=== PATIENT | female | born 1990 | race African-American/Black ===

== ENCOUNTER 2019-02-08 18:25 | Emergency (ER) | payer MEDICAID ==
[~2019-02-08 18:25] MED LIST: DILANTIN; FERROUS SULFATE; [UNRECOGNIZED DRUG - OTHER]
[2019-02-08] MEDS ORDERED: SODIUM CHLORIDE 0.9% 1,000 ML IV SCH (18:54)
[2019-02-08] MEDS ORDERED: DIPHENHYDRAMINE 50MG/ML VIAL IV ONE (19:00)
[2019-02-08] MEDS ORDERED: METHYLPREDNISOLONE SOD SUCC 125 MG/2 ML VIAL IV ONE (19:00)
[2019-02-08] MEDS ORDERED: FAMOTIDINE 20MG/2ML VIAL IV ONE (19:00)
[2019-02-08 20:03] LABS: BASOPHILS % 0.4 % (0.0-2.0); EOSINOPHILS % 0.5 % (0.0-5.0); HEMATOCRIT. 31.4 % (36.0-48.0); HEMOGLOBIN. 10.4 g/dL (12.0-16.0); MEAN CORPUSCULAR HEMOGLOBIN 29.4 pg (28.0-32.0); MEAN CORPUSCULAR VOLUME 88.9 fL (81.0-99.0); MEAN PLATELET VOLUME 7.5 fl (7.4-10.4); MONOCYTES % 5.5 % (2.0-8.0); NEUTROPHILS % 55.6 % (40.0-76.0); PLATELET 253 x1000/uL (130-400); RED BLOOD CELL COUNT 3.53 mill/uL (4.2-5.4); RED CELL DISTRIBUTION WIDTH 13.7 % (11.6-14.6)
[2019-02-08 20:09] LABS: CHLORIDE 104 mEq/L (98-107)
[2019-02-08 20:20] LABS: B-HCG QUANTITATIVE 81 mIU/mL (<3)
[2019-02-08] MEDS ORDERED: POTASSIUM CHLORIDE 20MEQ TABLET SR PO ONE (21:00)
[2019-02-08 22:56] VITALS: BP 115/65
== END 2019-02-08 23:00 | disposition home or self-care (01) ==
LOC: ER 19:51
DX: O26.891 Other specified pregnancy related conditions, first trimester (principal); N83.201 Unspecified ovarian cyst, right side; F12.10 Cannabis abuse, uncomplicated; F17.210 Nicotine dependence, cigarettes, uncomplicated; Z88.0 Allergy status to penicillin; Z79.899 Other long term (current) drug therapy
CPT/HCPCS: 36415; 76801; 76817; 80053; 81025; 84702; 85025; 96374; 96375; 99284; 99406; J1200; J2930; J3490; Z7610

== ENCOUNTER 2019-08-12 23:05 | Emergency (ER) | payer OTHER ==
[~2019-08-12] VITALS: Ht 167.6 cm; Wt 64.0 kg
[2019-08-12] MEDS ORDERED: LEVETIRACETAM 500MG PREMIX 100 ML IV ONE (23:45)
[2019-08-13 02:46] VITALS: BP 128/74
== END 2019-08-13 02:47 | disposition home or self-care (01) ==
LOC: ER 23:05
DX: G40.909 Epilepsy, unspecified, not intractable, without status epilepticus (principal); J45.909 Unspecified asthma, uncomplicated; F41.9 Anxiety disorder, unspecified; F12.10 Cannabis abuse, uncomplicated; Z88.0 Allergy status to penicillin
CPT/HCPCS: 96365; 99283; J1953

== ENCOUNTER 2022-12-28 21:21 | Emergency (ER) | payer MEDICAID, OTHER ==
[~2022-12-28] VITALS: Ht 157.5 cm; Wt 69.0 kg
[~2022-12-28 21:21] MED LIST changes: +NITR-87 MT
[2022-12-28 21:26] VITALS: BP 134/88
== END 2022-12-28 21:38 | disposition left against medical advice (07) ==
LOC: ER 21:21
DX: Z53.21 Procedure and treatment not carried out due to patient leaving prior to being seen by health care provider (principal)
CPT/HCPCS: 99281

== ENCOUNTER 2023-07-24 19:30 | Emergency (ER) | payer MEDICAID ==
[~2023-07-24] VITALS: Ht 162.6 cm; Wt 64.0 kg
[2023-07-24 19:41] VITALS: O2SAT 100
[2023-07-24 20:22] LABS: HCG SCREEN NEGATIVE
[2023-07-24] MEDS ORDERED: NAPR375T5 MT (20:25)
[2023-07-24] MEDS ORDERED: TOPUD MT (20:25)
[2023-07-24] MEDS ORDERED: IBUPROFEN 400MG TABLET PO ONE (20:30)
[2023-07-24] MEDS ORDERED: ACETAMINOPHEN 325MG TABLET PO ONE (20:30)
[2023-07-24 21:18] VITALS: BP 118/86
[2023-07-24 21:21] VITALS: PULSE 81; RESP 16; TEMP 98.6
== END 2023-07-24 21:21 | disposition home or self-care (01) ==
LOC: ER 19:30
DX: S00.83XA Contusion of other part of head, initial encounter (principal); F41.9 Anxiety disorder, unspecified; F32.A Depression, unspecified; G40.909 Epilepsy, unspecified, not intractable, without status epilepticus; F12.90 Cannabis use, unspecified, uncomplicated; Z88.0 Allergy status to penicillin; Y08.89XA Assault by other specified means, initial encounter; Y93.89 Activity, other specified; Y92.89 Other specified places as the place of occurrence of the external cause; Y99.8 Other external cause status
CPT/HCPCS: 81025; 84703; 99283

== ENCOUNTER 2024-01-10 17:20 | Emergency (ER) | payer MEDICAID ==
[~2024-01-10] VITALS: Ht 157.5 cm; Wt 60.0 kg
[~2024-01-10 17:20] MED LIST changes: +NAPR375T5 MT; +TOPUD MT
[2024-01-10 17:55] VITALS: O2SAT 100
[2024-01-10] MEDS: LORAZEPAM 2MG/ML INJ IM ONE (18:18)
[2024-01-10] MEDS: DIPHENHYDRAMINE 50MG/ML VIAL IM ONE (18:18)
[2024-01-10] MEDS: HALOPERIDOL LACTATE 5MG/ML VIAL IM ONE (18:18)
[2024-01-10 19:54] LABS: BASOPHILS % 0.2 % (0.0-2.0); EOSINOPHILS % 0.3 % (0.0-5.0); HEMATOCRIT. 29.1 % (36.0-48.0); HEMOGLOBIN. 9.5 g/dL (12.0-16.0); LYMPHOCYTES % 24.2 % (20.0-50.0); MEAN CORPUSCULAR HEMOGLOBIN 29.5 pg (28.0-32.0); MEAN CORPUSCULAR HGB CONC 32.6 g/dL (31.0-37.0); MEAN CORPUSCULAR VOLUME 90.6 fL (81.0-99.0); MEAN PLATELET VOLUME 7.8 fl (7.4-10.4); MONOCYTES % 6.8 % (2.0-8.0); NEUTROPHILS % 68.5 % (40.0-76.0); PLATELET 273 x1000/uL (130-400); RED BLOOD CELL COUNT 3.21 mill/uL (4.2-5.4); WHITE BLOOD COUNT 9.3 x1000/uL (4.5-11.0)
[2024-01-10 20:11] LABS: ACETAMINOPHEN < 2 ug/mL (10-30); ALANINE AMINOTRANSFERASE 27 IU/L (10-49); ALBUMIN 4.3 g/dL (3.2-4.8); ASPARTATE AMINOTRANSFERASE 55 IU/L (<34); BILIRUBIN TOTAL 0.6 mg/dL (0.1-1.0); CALCIUM 8.9 mg/dL (8.7-10.4); CARBON DIOXIDE 25 mEq/L (21-32); CHLORIDE 110 mEq/L (98-107); CREATININE 0.9 mg/dL (0.6-1.0); GLUCOSE 89 mg/dL (70-105); POTASSIUM 3.2 mEq/L (3.5-5.1); PROTEIN TOTAL 7.4 g/dL (6.0-8.3); SODIUM 142 mEq/L (136-145); UREA NITROGEN BLOOD 12 mg/dL (9-23)
[2024-01-10 20:13] LABS: ETHANOL BLOOD < 10 mg/dL (<10)
[2024-01-10 20:23] LABS: HCG SCREEN NEGATIVE
[2024-01-10] MEDS ORDERED: POTASSIUM CHLORIDE 20MEQ TABLET SR PO ONE (23:15)
[2024-01-11 01:23] LABS: CLARITY URINE CLEAR (CLEAR); COLOR URINE DARK YELLOW (YELLOW); GLUCOSE URINE NEGATIVE (NEGATIVE); KETONES URINE 1+ (NEGATIVE); LEUKOCYTE ESTERASE URINE NEGATIVE (NEGATIVE); NITRITE URINE NEGATIVE (NEGATIVE); OCCULT BLOOD URINE NEGATIVE (NEGATIVE); PROTEIN URINE 2+ (NEGATIVE); SPECIFIC GRAVITY URINE 1.039 (1.005-1.030)
[2024-01-11 01:32] LABS: *AMPHETAMINES SCREEN URINE PRESUMPTIVE POSITIVE (NEGATIVE); *BARBITURATES SCREEN URINE NEGATIVE (NEGATIVE); *BENZODIAZEPINES SCREEN URINE NEGATIVE (NEGATIVE); *COCAINE SCREEN URINE NEGATIVE (NEGATIVE); CANNABINOID URINE SCREEN PRESUMPTIVE POSITIVE (NEGATIVE); ECSTASY MDMA SCREEN URINE CONF.TEST INDICATED (NEGATIVE); METHADONE URINE SCREEN Neg (NEGATIVE); OPIATES URINE SCREEN NEGATIVE (NEGATIVE); PHENCYCLIDINE URINE SCREEN PRESUMTIVE POSITIVE (NEGATIVE)
[2024-01-11 01:36] LABS: BACTERIA URINE TRACE; MUCUS URINE 1+ /lpf (< = 2+); RBC URINE 0-2 /hpf (0-2); SQUAMOUS EPITHELIAL CELL URINE 1+ /lpf (RARE/1+)
[2024-01-11] MEDS: POTASSIUM CHLORIDE 20MEQ TABLET SR PO NR (01:48)
[2024-01-11] MEDS: LEVETIRACETAM 500MG TABLET PO SCH (09:30)
[2024-01-11 21:25] VITALS: BP 112/63; PULSE 65; RESP 18; TEMP 98.4
== END 2024-01-11 22:05 ==
LOC: ER 17:20
DX: R45.81 Low self-esteem (principal); D64.9 Anemia, unspecified; E87.6 Hypokalemia; Z20.822 Contact with and (suspected) exposure to COVID-19
CPT/HCPCS: 80053; 80307; 80329; 80320; 84703; 85025; 36415; 93005; 96372; 99291; 87426; 80305; 81003; J1200; J1630; J2060; Z7610 ×5; G0480

== ENCOUNTER 2024-10-05 10:37 | Emergency (ER) | payer MEDICAID ==
[~2024-10-05] VITALS: Ht 157.5 cm; Wt 61.0 kg
[~2024-10-05 10:37] MED LIST changes: +NAPR-1494 MT; -NAPR375T5 MT
[2024-10-05 10:41] VITALS: BP 110/61; TEMP 98.6; O2SAT 99
[2024-10-05 11:04] VITALS: PULSE 116; RESP 18; O2SAT 99
== END 2024-10-05 13:14 | disposition left against medical advice (07) ==
LOC: ER 10:37
DX: S71.152A Open bite, left thigh, initial encounter (principal); Z53.21 Procedure and treatment not carried out due to patient leaving prior to being seen by health care provider; W54.0XXA Bitten by dog, initial encounter; Y93.89 Activity, other specified; Y92.89 Other specified places as the place of occurrence of the external cause; Y99.8 Other external cause status